=== PATIENT | female | born 1980 ===

== ENCOUNTER 2017-08-09 20:05 | Emergency (ER) | payer SELFPAY ==
[2017-08-09 20:29] VITALS: BP 136/79; PULSE 113; RESP 19; TEMP 98.4; O2SAT 99; BMI 23.5
--- NOTE | 2017-08-09 20:43 | ED PDOC ---
Arrival/HPI - General Chief Complaint: Finger,Hand,&Wrist Time Seen by Provider: 08/09/17 20:40 Historian: Patient - History of Present Illness Narrative History of Present Illness (Text): 08/09/17 20:40 This 37 yo female with a pmh eczema, presents to this ED c/o b/l hand / fingers pruritic rash x 3 days. Patient stated she has had similar symptoms in the past , in which, she is given a steroid injection. Patient denies other complains. Time/Duration: Other (3 days) Context: Home Past Medical History - Provider Review Nursing Documentation Reviewed: Yes - Cardiac Hx Cardiac Disorders: No - Pulmonary Hx Respiratory Disorders: No - Neurological Hx Neurological Disorder: No - HEENT Hx HEENT Disorder: No - Renal Hx Renal Disorder: No - Endocrine/Metabolic Hx Endocrine Disorders: No - Hematological/Oncological Hx Blood Disorders: No - Integumentary Hx Eczema: Yes - Musculoskeletal/Rheumatological Hx Musculoskeletal Disorders: No - Gastrointestinal Hx Gastrointestinal Disorders: No - Genitourinary/Gynecological Hx Genitourinary Disorders: No - Psychiatric Hx Psychophysiologic Disorder: No Hx Substance Use: No - Anesthesia Hx Anesthesia: No Family/Social History - Physician Review Nursing Documentation Reviewed: Yes Family/Social History: Other (noncontributory) Smoking Status: Current Some Days Smoker Hx Alcohol Use: No Hx Substance Use: No Allergies/Home Meds Allergies/Adverse Reactions: Allergies No Known Allergies Allergy (Verified 08/09/17 20:29) Review of Systems - Review of Systems Constitutional: Normal. absent: Fatigue, Weight Change, Fevers, Night Sweats Eyes: Normal ENT: Normal Respiratory: Normal. absent: SOB, Cough Cardiovascular: Normal. absent: Chest Pain, Palpitations Gastrointestinal: Normal. absent: Abdominal Pain, Nausea, Vomiting Genitourinary Female: Normal. absent: Dysuria Musculoskeletal: Normal. absent: Back Pain, Neck Pain Skin: Rash, Pruritis. absent: Skin Lesions, Laceration, Abscess, Ulcer, Cellulitis Neurological: Normal. absent: Headache, Dizziness, Focal Weakness Endocrine: Normal Hemo/Lymphatic: Normal Psychiatric: Normal Physical Exam Vital Signs Temp Pulse Resp BP Pulse Ox 08/09/17 20:30 98.4 F 113 H 19 136/79 99 08/09/17 20:28 98.4 F 113 H 19 136/79 99 Temperature: Afebrile Blood Pressure: Normal Pulse: Tachycardic Respiratory Rate: Normal Appearance: Positive for: Well-Appearing, Non-Toxic, Comfortable Pain Distress: None Mental Status: Positive for: Alert and Oriented X 3 - Systems Exam Head: Present: Atraumatic, Normocephalic Pupils: Present: PERRL Extroacular Muscles: Present: EOMI Conjunctiva: Present: Normal Mouth: Present: Moist Mucous Membranes Neck: Present: Normal Range of Motion Respiratory/Chest: Present: Clear to Auscultation, Good Air Exchange. No: Respiratory Distress, Accessory Muscle Use Cardiovascular: Present: Regular Rate and Rhythm, Normal S1, S2. No: Murmurs Abdomen: Present: Normal Bowel Sounds. No: Tenderness, Distention, Peritoneal Signs Back: Present: Normal Inspection Upper Extremity: Present: Normal ROM, NORMAL PULSES, Neurovascularly Intact, Capillary Refill < 2s, Other ((+) eczema like rash on finger b/l hands. No cellulitis or abscess). No: Cyanosis, Edema Lower Extremity: Present: Normal Inspection. No: Edema Neurological: Present: GCS=15, CN II-XII Intact, Speech Normal, Motor Func Grossly Intact, Normal Sensory Function, Normal Cerebellar Funct, Gait Normal Skin: Present: Warm, Dry, Normal Color. No: Rashes Psychiatric: Present: Alert, Oriented x 3, Normal Insight, Normal Concentration Medical Decision Making ED Course and Treatment: 08/09/17 20:45 Patient is resting comfortably, and is in no acute distress. Patient was instructed to follow up with PMD in 1-2 days for further evaluation 08/09/17 20:50 Patient requested to have Steroid medication for his symptoms. I reviewed some of the risks involved with the use of Decadron IVP with the patient, not only but including AVN, DM, glaucoma, osteoporosis, adrenal insufficiency, infection, HTN, GI perforation, cataracts. Patient understood risk, and he agrees to have Decadron since his symptoms have been worsening. She also requested steroid cream to use for future eczema complains. Re-evaluation Time: 20:45 Reassessment Condition: Re-examined, Improved Disposition/Present on Arrival - Present on Arrival Any Indicators Present on Arrival: No History of DVT/PE: No History of Uncontrolled Diabetes: No Urinary Catheter: No History of Decub. Ulcer: No History Surgical Site Infection Following: None - Disposition Have Diagnosis and Disposition been Completed?: Yes Diagnosis: Eczema of both hands Disposition: HOME/ ROUTINE Disposition Time: 20:46 Patient Plan: Discharge Condition: GOOD Discharge Instructions (ExitCare): Eczema in Children (ED) Additional Instructions: Call private doctor for follow up visit in 1-2 days. Take medication as instructed. Return to emergency if rash worsen. Prescriptions: Hydroxyzine Pamoate [Vistaril] 25 mg PO Q6H PRN #30 capsule PRN Reason: Itching / Pruritus Triamcinolone Acetonide 0.1% [Kenalog 0.1% CREAM] 1 appl TP BID #1 tube Referrals: Sue Felipe MD [Staff Provider] - Follow up with primary [facility] [Outside] - Follow up with primary [facility] [Outside] - Follow up with primary
== END 2017-08-09 20:58 | disposition home or self-care (01) ==
LOC: ED 20:05
DX: L30.9 Dermatitis, unspecified (principal)
CPT/HCPCS: 81025; 96372; 99284; J1100